=== PATIENT | female | born 1985 | race Caucasian/White ===

== ENCOUNTER 2016-06-12 19:18 | Emergency (ER) | payer MEDICARE | END 2016-06-13 00:42 | disposition home or self-care (01) | LOC: D.ER 19:18 | DX: S43.401A Unspecified sprain of right shoulder joint, initial encounter (principal); X50.0XXA Overexertion from strenuous movement or load, initial encounter; X50.9XXA Other and unspecified overexertion or strenuous movements or postures, initial encounter; Y93.89 Activity, other specified; Y92.019 Unspecified place in single-family (private) house as the place of occurrence of the external cause; B20 Human immunodeficiency virus [HIV] disease ==

== ENCOUNTER 2016-07-12 20:50 | Emergency (ER) | payer MEDICARE | END 2016-07-12 21:45 | disposition home or self-care (01) | LOC: D.ER 20:50 | DX: J02.9 Acute pharyngitis, unspecified (principal); F17.200 Nicotine dependence, unspecified, uncomplicated; B20 Human immunodeficiency virus [HIV] disease ==

== ENCOUNTER 2016-08-15 20:57 | Emergency (ER) | payer MEDICARE | END 2016-08-16 00:38 | disposition home or self-care (01) | LOC: D.ER 20:57 | DX: J01.90 Acute sinusitis, unspecified (principal); B20 Human immunodeficiency virus [HIV] disease; F17.200 Nicotine dependence, unspecified, uncomplicated ==

== ENCOUNTER 2017-04-22 17:12 | Emergency (ER) | payer MEDICARE ==
[2017-04-22 18:06] LABS: HEMATOCRIT 37.7 % (36.0-48.0); HEMOGLOBIN 12.1 g/dL (12-16); MCH 29.5 pg (26.0-34.0); MCHC 32.1 g/dL (31.0-37.0); MEAN PLATELET VOLUME 10.7 fL (7.4-10.4); PLATELET COUNT 133 10x3/uL (130-400); RDW 13.3 % (11.5-14.5); WBC 2.9 10x3/uL (4.8-10.8)
[2017-04-22 18:26] LABS: LYMPHOCYTES 28 % (15-50); MONOCYTES 10 % (2-11); NEUTROPHILS 62 % (40-80); PLATELET ESTIMATE NORMAL; PLATELET MORPHOLOGY GIANT PLTS PRESENT
== END 2017-04-22 19:30 | disposition home or self-care (01) ==
LOC: D.ER 17:12
PROVIDERS: Physician Assistant
DX: J20.9 Acute bronchitis, unspecified (principal); J11.1 Influenza due to unidentified influenza virus with other respiratory manifestations; R53.81 Other malaise; B20 Human immunodeficiency virus [HIV] disease

== ENCOUNTER → 2017-12-03 13:20 | Outpatient (CLI) | payer MEDICARE ==
[~2017-12-03 13:20] MED LIST: ALBUTEROL2.5 MG/3 M INH; BACTRIM DS TABL1 TAB PO; BIKTARVY; CELEXA10 MG PO; CUBICIN500 MG IV; IBUPROFEN800 MG PO; PAMELOR 25 MG C25 MG PO; PROTONIX40 MG PO; PROZAC20 MG PO; XANAX0.5 MG PO; ZITHROMAX600 MG PO
[2017-12-03 14:49] LABS: HEMATOCRIT 24.2 % (36.0-48.0); MCH 27.4 pg (26.0-34.0); MCHC 30.6 g/dL (31.0-37.0); MCV 89.6 fL (80.0-100.0); MEAN PLATELET VOLUME 10.3 fL (7.4-10.4); PLATELET COUNT 119 10x3/uL (130-400); RDW 15.1 % (11.5-14.5); WBC 2.8 10x3/uL (4.8-10.8)
[2017-12-03 14:57] LABS: HEMOGLOBIN 7.4 g/dL (12-16)
[2017-12-03 15:06] LABS: ALBUMIN 2.9 g/dL (3.4-5.0); BILIRUBIN - TOTAL 0.19 mg/dL (0.2-1.3); C-REACTIVE PROTEIN 2.9 mg/dL (0.0-0.9); CALCIUM 8.9 mg/dL (8.5-10.1); PROTEIN - SERUM 6.7 g/dL (6.4-8.2)
[2017-12-03 17:51] LABS: EOSINOPHILS 1 % (0-7); LYMPHOCYTES 22 % (15-50); MONOCYTES 2 % (2-11); NEUTROPHILS 72 % (40-80); PLATELET ESTIMATE NORMAL
[2017-12-03 18:16] LABS: ERYTHROCYTE SEDIMENTATION RATE 90 mm/hr (0-20)
[2017-12-28 00:30] VITALS: BMI 41.5
== END | disposition home or self-care (01) ==
LOC: D.LABREF 13:20
PROVIDERS: Student in an Organized Health Care Education/Training Program
DX: B95.62 Methicillin resistant Staphylococcus aureus infection as the cause of diseases classified elsewhere (principal)

== ENCOUNTER 2017-12-05 18:36 | Observation (INO) | payer MEDICARE ==
[~2017-12-05] VITALS: Ht 149.9 cm; Wt 92.7 kg
[2017-12-05] MEDS ORDERED: ALBUTEROL2.5 MG/3 M INH (18:50)
[2017-12-05] MEDS ORDERED: ZITHROMAX600 MG PO (18:50)
[2017-12-05] MEDS ORDERED: BIKTARVY (18:52)
[2017-12-05] MEDS ORDERED: CUBICIN500 MG IV (18:52)
[2017-12-05] MEDS ORDERED: XANAX0.5 MG PO (18:53)
[2017-12-05] MEDS ORDERED: CELEXA10 MG PO (18:53)
[2017-12-05] MEDS ORDERED: PAMELOR 25 MG C25 MG PO (18:53)
[2017-12-05] MEDS ORDERED: BACTRIM DS TABL1 TAB PO (18:53)
[2017-12-05] MEDS ORDERED: PROTONIX40 MG PO (18:53)
[2017-12-05 21:02] LABS: BASOPHILS 0.3 % (0-2); EOSINOPHILS 0 % (0-7); HEMATOCRIT 24.2 % (36.0-48.0); IMMATURE GRANULOCYTES 0.3 % (0-5); LYMPHOCYTES 17.3 % (15-50); MCH 26.7 pg (26.0-34.0); MCHC 30.2 g/dL (31.0-37.0); MCV 88.6 fL (80.0-100.0); MEAN PLATELET VOLUME 9.9 fL (7.4-10.4); MONOCYTES 9.9 % (2-11); NEUTROPHILS 72.2 % (40-80); RBC 2.73 10x6/uL (4.00-5.40); RDW 15.1 % (11.5-14.5); WBC 3.2 10x3/uL (4.8-10.8)
[2017-12-05 21:32] LABS: HEMOGLOBIN 7.3 g/dL (12-16); PLATELET COUNT 157 10x3/uL (130-400)
[2017-12-05 21:37] LABS: ALBUMIN 2.9 g/dL (3.4-5.0); ANION GAP 11.9 mmol/L (8-16); BILIRUBIN - TOTAL 0.23 mg/dL (0.2-1.3); CARBON DIOXIDE 30.5 mmol/L (21.0-32.0); CREATININE - SERUM 1.2 mg/dL (0.6-1.3); POTASSIUM - SERUM 3.4 mmol/L (3.5-5.1); PROTEIN - SERUM 7.5 g/dL (6.4-8.2)
[2017-12-05 23:04] VITALS: BP 131/77
[2017-12-06] VITALS (7 sets, daily range): BP systolic 116–153; BP diastolic 65–85; Ht 149.9 cm; Wt 92.7 kg
[2017-12-06 06:16] LABS: BASOPHILS 0.6 % (0-2); EOSINOPHILS 0 % (0-7); HEMATOCRIT 25.7 % (36.0-48.0); HEMOGLOBIN 7.9 g/dL (12-16); IMMATURE GRANULOCYTES 0.3 % (0-5); LYMPHOCYTES 17.8 % (15-50); MCH 27.1 pg (26.0-34.0); MCHC 30.7 g/dL (31.0-37.0); MEAN PLATELET VOLUME 9.3 fL (7.4-10.4); NEUTROPHILS 68.3 % (40-80); PLATELET COUNT 145 10x3/uL (130-400); RBC 2.92 10x6/uL (4.00-5.40); RDW 15.9 % (11.5-14.5); WBC 3.5 10x3/uL (4.8-10.8)
[2017-12-06 06:47] LABS: ANION GAP 12.8 mmol/L (8-16); CALCIUM 8.3 mg/dL (8.5-10.1); CREATININE - SERUM 1.2 mg/dL (0.6-1.3); POTASSIUM - SERUM 3.8 mmol/L (3.5-5.1)
[2017-12-07] VITALS: BP 119/65
[2017-12-07 04:00] VITALS: BP 117/66
[2017-12-07 05:38] LABS: BASOPHILS 0.3 % (0-2); EOSINOPHILS 0 % (0-7); HEMATOCRIT 25.8 % (36.0-48.0); HEMOGLOBIN 7.9 g/dL (12-16); IMMATURE GRANULOCYTES 0.3 % (0-5); LYMPHOCYTES 12.8 % (15-50); MCH 27.1 pg (26.0-34.0); MCHC 30.6 g/dL (31.0-37.0); MCV 88.4 fL (80.0-100.0); MEAN PLATELET VOLUME 9.8 fL (7.4-10.4); MONOCYTES 8.1 % (2-11); NEUTROPHILS 78.5 % (40-80); PLATELET COUNT 180 10x3/uL (130-400); RBC 2.92 10x6/uL (4.00-5.40); RDW 15.8 % (11.5-14.5); WBC 3.2 10x3/uL (4.8-10.8)
[2017-12-07 05:54] LABS: ALBUMIN 2.4 g/dL (3.4-5.0); ANION GAP 11.1 mmol/L (8-16); BILIRUBIN - TOTAL 0.14 mg/dL (0.2-1.3); CALCIUM 8.2 mg/dL (8.5-10.1); CARBON DIOXIDE 29.2 mmol/L (21.0-32.0); CREATININE - SERUM 1.2 mg/dL (0.6-1.3); POTASSIUM - SERUM 3.3 mmol/L (3.5-5.1); PROTEIN - SERUM 6.6 g/dL (6.4-8.2)
[2017-12-07 08:17] VITALS: BP 119/75
[2017-12-07 12:26] VITALS: BP 123/82
== END 2017-12-07 18:57 | disposition home health service (06) ==
LOC: D.ER 18:36 → D.EDHOLD 21:54 → D.MS 21:54 → D.EDHOLD 21:54 → OBSVTIME 21:54 → D.MS 12-06 15:33
PROVIDERS: Family Medicine
DX: D62 Acute posthemorrhagic anemia (principal); I33.0 Acute and subacute infective endocarditis; G00.9 Bacterial meningitis, unspecified; J44.9 Chronic obstructive pulmonary disease, unspecified; F12.10 Cannabis abuse, uncomplicated; E87.6 Hypokalemia; Z91.19 Patient's noncompliance with other medical treatment and regimen; Z21 Asymptomatic human immunodeficiency virus [HIV] infection status

== ENCOUNTER → 2017-12-10 15:05 | Outpatient (CLI) | payer MEDICARE ==
[2017-12-06 18:43] VITALS: BMI 41.5
[2017-12-10 20:09] LABS: BASOPHILS 0.5 % (0-2); EOSINOPHILS 0.3 % (0-7); HEMATOCRIT 32.1 % (36.0-48.0); HEMOGLOBIN 9.8 g/dL (12-16); IMMATURE GRANULOCYTES 0.8 % (0-5); LYMPHOCYTES 16.7 % (15-50); MCH 27.6 pg (26.0-34.0); MCHC 30.5 g/dL (31.0-37.0); MCV 90.4 fL (80.0-100.0); MEAN PLATELET VOLUME 9.8 fL (7.4-10.4); MONOCYTES 10.2 % (2-11); NEUTROPHILS 71.5 % (40-80); RBC 3.55 10x6/uL (4.00-5.40); RDW 15.3 % (11.5-14.5); WBC 3.7 10x3/uL (4.8-10.8)
[2017-12-10 20:11] LABS: PLATELET COUNT 231 10x3/uL (130-400)
[2017-12-10 21:05] LABS: ALBUMIN 3.2 g/dL (3.4-5.0); ALKALINE PHOSPHATASE 57 U/L (46-116); ALT (SGPT) 17 U/L (10-68); BILIRUBIN - TOTAL 0.17 mg/dL (0.2-1.3); CALC OSMOLALITY 282 mosm/kg (275-300); CARBON DIOXIDE 26.3 mmol/L (21.0-32.0); CHLORIDE - SERUM 102 mmol/L (98-107); CREATINE KINASE 538 UL (21-215); CREATININE - SERUM 1.3 mg/dL (0.6-1.3); POTASSIUM - SERUM 3.7 mmol/L (3.5-5.1); PROTEIN - SERUM 7.2 g/dL (6.4-8.2); SODIUM 142 mmol/L (136-145); UREA NITROGEN 14 mg/dL (7-18); eGFR NON AFRICAN AMERICAN 50 mL/min (90-120)
[2017-12-10 21:07] LABS: GLUCOSE 79 mg/dL (74-106)
[2017-12-10 21:08] LABS: CKMB 0.7 U/L (0.0-3.6)
[2017-12-10 21:16] LABS: ERYTHROCYTE SEDIMENTATION RATE 70 mm/hr (0-20)
== END | disposition home or self-care (01) ==
LOC: D.LAB 15:05
PROVIDERS: Internal Medicine Infectious Disease
DX: B95.62 Methicillin resistant Staphylococcus aureus infection as the cause of diseases classified elsewhere (principal); R51 Headache; F41.9 Anxiety disorder, unspecified; B20 Human immunodeficiency virus [HIV] disease

== ENCOUNTER 2017-12-11 04:00 | Emergency (ER) | payer MEDICARE ==
[~2017-12-11] VITALS: Ht 149.9 cm; Wt 88.6 kg
[~2017-12-11 04:00] MED LIST changes: -IBUPROFEN800 MG PO; -PROZAC20 MG PO
[2017-12-11 04:08] VITALS: Ht 149.9 cm; Wt 88.6 kg
[2017-12-11] MEDS ORDERED: PROZAC20 MG PO (04:10)
[2017-12-11 06:09] VITALS: BP 142/75
== END 2017-12-11 05:20 | disposition home or self-care (01) ==
LOC: D.ER 04:00
DX: M25.561 Pain in right knee (principal); T65.811A Toxic effect of latex, accidental (unintentional), initial encounter; Y92.019 Unspecified place in single-family (private) house as the place of occurrence of the external cause

== ENCOUNTER → 2017-12-17 12:07 | Outpatient (CLI) | payer MEDICARE ==
[2017-12-11 04:08] VITALS: BMI 39.4
[~2017-12-17 12:07] MED LIST changes: +IBUPROFEN800 MG PO; +PROZAC20 MG PO
[2017-12-17 13:43] LABS: BASOPHILS 1.2 % (0-2); EOSINOPHILS 8.4 % (0-7); HEMATOCRIT 32.8 % (36.0-48.0); HEMOGLOBIN 10.2 g/dL (12-16); IMMATURE GRANULOCYTES 0.3 % (0-5); LYMPHOCYTES 27.5 % (15-50); MCH 28.2 pg (26.0-34.0); MCHC 31.1 g/dL (31.0-37.0); MCV 90.6 fL (80.0-100.0); MEAN PLATELET VOLUME 9.4 fL (7.4-10.4); MONOCYTES 10.5 % (2-11); NEUTROPHILS 52.1 % (40-80); PLATELET COUNT 261 10x3/uL (130-400); RBC 3.62 10x6/uL (4.00-5.40); RDW 15.3 % (11.5-14.5); WBC 3.3 10x3/uL (4.8-10.8)
[2017-12-17 14:17] LABS: ALBUMIN 3.3 g/dL (3.4-5.0); ALKALINE PHOSPHATASE 47 U/L (46-116); ALT (SGPT) 22 U/L (10-68); BILIRUBIN - TOTAL 0.15 mg/dL (0.2-1.3); CALC OSMOLALITY 284 mosm/kg (275-300); CARBON DIOXIDE 28.7 mmol/L (21.0-32.0); CHLORIDE - SERUM 107 mmol/L (98-107); CREATINE KINASE 387 UL (21-215); CREATININE - SERUM 1.1 mg/dL (0.6-1.3); GLUCOSE 116 mg/dL (74-106); POTASSIUM - SERUM 3.8 mmol/L (3.5-5.1); PROTEIN - SERUM 7.6 g/dL (6.4-8.2); SODIUM 143 mmol/L (136-145); UREA NITROGEN 10 mg/dL (7-18); eGFR NON AFRICAN AMERICAN 60 mL/min (90-120)
[2017-12-17 14:18] LABS: C-REACTIVE PROTEIN < 0.2 mg/dL (0.0-0.9)
[2017-12-17 14:27] LABS: CKMB 0.7 U/L (0.0-3.6)
[2017-12-17 15:36] LABS: ERYTHROCYTE SEDIMENTATION RATE 60 mm/hr (0-20)
== END | disposition home or self-care (01) ==
LOC: D.RAD 12:07
PROVIDERS: Student in an Organized Health Care Education/Training Program
DX: R78.81 Bacteremia (principal); I33.0 Acute and subacute infective endocarditis; B95.62 Methicillin resistant Staphylococcus aureus infection as the cause of diseases classified elsewhere; B20 Human immunodeficiency virus [HIV] disease; R05 Cough

== ENCOUNTER 2017-12-19 19:56 | Emergency (ER) | payer MEDICARE ==
[~2017-12-19] VITALS: Ht 149.9 cm; Wt 90.9 kg
[~2017-12-19 19:56] MED LIST changes: -IBUPROFEN800 MG PO
[2017-12-19 20:15] VITALS: Ht 149.9 cm; Wt 90.9 kg
[2017-12-19] MEDS ORDERED: IBUPROFEN800 MG PO (22:07)
[2017-12-19 23:04] VITALS: BP 176/83
== END 2017-12-19 23:04 | disposition home or self-care (01) ==
LOC: D.ER 19:56
DX: R07.89 Other chest pain (principal); J44.9 Chronic obstructive pulmonary disease, unspecified

== ENCOUNTER → 2017-12-24 17:24 | Outpatient (CLI) | payer MEDICARE ==
[2017-12-19 20:15] VITALS: BMI 40.5
[~2017-12-24 17:24] MED LIST changes: +IBUPROFEN800 MG PO
[2017-12-24 18:53] LABS: HEMATOCRIT 34.7 % (36.0-48.0); HEMOGLOBIN 10.6 g/dL (12-16); MCH 27.8 pg (26.0-34.0); MCHC 30.5 g/dL (31.0-37.0); MCV 91.1 fL (80.0-100.0); MEAN PLATELET VOLUME 9.8 fL (7.4-10.4); RBC 3.81 10x6/uL (4.00-5.40); RDW 16.1 % (11.5-14.5); WBC 2.7 10x3/uL (4.8-10.8)
[2017-12-24 18:55] LABS: PLATELET COUNT 206 10x3/uL (130-400)
[2017-12-24 19:53] LABS: ERYTHROCYTE SEDIMENTATION RATE 40 mm/hr (0-20)
[2017-12-24 19:56] LABS: ALBUMIN 3.8 g/dL (3.4-5.0); ANION GAP 12.9 mmol/L (8-16); BILIRUBIN - TOTAL 0.21 mg/dL (0.2-1.3); C-REACTIVE PROTEIN 0.2 mg/dL (0.0-0.9); CALCIUM 9.1 mg/dL (8.5-10.1); CARBON DIOXIDE 27.1 mmol/L (21.0-32.0); CREATININE - SERUM 1.2 mg/dL (0.6-1.3); PROTEIN - SERUM 8.1 g/dL (6.4-8.2)
[2017-12-24 19:58] LABS: EOSINOPHILS 4 % (0-7); LYMPHOCYTES 36 % (15-50); NEUTROPHILS 60 % (40-80); PLATELET ESTIMATE NORMAL
== END | disposition home or self-care (01) ==
LOC: D.LABREF 17:24
PROVIDERS: Student in an Organized Health Care Education/Training Program
DX: R78.81 Bacteremia (principal); I33.0 Acute and subacute infective endocarditis; B95.62 Methicillin resistant Staphylococcus aureus infection as the cause of diseases classified elsewhere; F32.9 Major depressive disorder, single episode, unspecified

== ENCOUNTER 2017-12-28 00:24 | Emergency (ER) | payer MEDICARE ==
[~2017-12-28] VITALS: Ht 149.9 cm; Wt 93.2 kg
[2017-12-28 00:30] VITALS: Ht 149.9 cm; Wt 93.2 kg
[2017-12-28 01:14] LABS: BASOPHILS 1.9 % (0-2); EOSINOPHILS 2.2 % (0-7); HEMATOCRIT 29.6 % (36.0-48.0); HEMOGLOBIN 9.3 g/dL (12-16); LYMPHOCYTES 61.7 % (15-50); MCH 28.1 pg (26.0-34.0); MCHC 31.4 g/dL (31.0-37.0); MCV 89.4 fL (80.0-100.0); MEAN PLATELET VOLUME 9.3 fL (7.4-10.4); MONOCYTES 12.8 % (2-11); NEUTROPHILS 21.4 % (40-80); RBC 3.31 10x6/uL (4.00-5.40); RDW 16.2 % (11.5-14.5); WBC 4.2 10x3/uL (4.8-10.8)
[2017-12-28 01:24] LABS: PLATELET COUNT 151 10x3/uL (130-400)
[2017-12-28 01:45] LABS: ALBUMIN 3.3 g/dL (3.4-5.0); ANION GAP 10.8 mmol/L (8-16); BILIRUBIN - TOTAL 0.14 mg/dL (0.2-1.3); CALCIUM 8.6 mg/dL (8.5-10.1); CARBON DIOXIDE 25.8 mmol/L (21.0-32.0); POTASSIUM - SERUM 3.6 mmol/L (3.5-5.1); PROTEIN - SERUM 7.5 g/dL (6.4-8.2)
[2017-12-28 02:12] LABS: APPEARANCE HAZY (CLEAR); BACTERIA FEW /hpf (NONE SEEN); BILIRUBIN NEGATIVE (NEGATIVE); COLOR YELLOW (YELLOW); EPITHELIAL CELLS NSEEN /hpf (0-5); GLUCOSE NEGATIVE (NEGATIVE); KETONE NEGATIVE (NEGATIVE); NITRITE NEGATIVE (NEGATIVE); PROTEIN TRACE mg/dL (NEGATIVE); RED CELLS - URINE 0-5 /hpf (0-5); SPECIFIC GRAVITY 1.015 (1.005-1.020); UROBILINOGEN NORMAL (NORMAL); WHITE CELLS - URINE 25-50 /hpf (0-5)
[2017-12-28 06:54] VITALS: BP 137/70
== END 2017-12-28 06:57 ==
LOC: D.ER 00:24
PROVIDERS: Family Medicine
DX: I38 Endocarditis, valve unspecified (principal); B95.62 Methicillin resistant Staphylococcus aureus infection as the cause of diseases classified elsewhere; B20 Human immunodeficiency virus [HIV] disease; R91.8 Other nonspecific abnormal finding of lung field